=== PATIENT | male | born 1955 | race African-American/Black ===

== ENCOUNTER → 2017-12-25 | Outpatient (CLI) | payer BC | END | disposition home or self-care (01) | LOC: KCIC US 09:31 | DX: N28.1 Cyst of kidney, acquired (principal) | CPT/HCPCS: 76700 ==

== ENCOUNTER → 2017-12-28 | Outpatient (CLI) | payer BC | END | disposition home or self-care (01) | LOC: KCIC 09:31 | DX: R05 Cough (principal) | CPT/HCPCS: 71046 ==